=== PATIENT | female | born 1965 | race Caucasian/White ===

== ENCOUNTER 2023-12-23 21:53 | Inpatient (IN) ==
[2023-12-23 23:50] LABS: Hematocrit 28.9 % (35-45); Hemoglobin 10.1 g/dL (11.5-14.3); Mean Corpuscular Hemoglobin 30.5 pg (27-33); Mean Corpuscular Hgb Conc 35.1 g/dL (31-36); Mean Corpuscular Volume 87.1 fL (80-97); Mean Platelet Volume 8.4 fL (7.5-11.2); Platelet Count 141 10^3/uL (150-450); Red Blood Count 3.32 10^6/uL (3.63-4.92); Red Cell Distribution Width 16.5 % (12-17); White Blood Count 3.8 10^3/uL (3.8-11.8)
[2023-12-23 23:58] LABS: Urine Appearance Clear; Urine Bilirubin Negative (Negative); Urine Blood Negative (Negative); Urine Color Light-Yellow; Urine Glucose Negative (Negative); Urine Ketones Negative (Negative); Urine Nitrite Negative (Negative); Urine Protein Negative (Negative); Urine Specific Gravity 1.016 (1.002-1.030); Urine Urobilinogen Negative (Negative); Urine pH 5.5 (5.0-8.0)
[2023-12-23 23:59] LABS: Activated Partial Thrombo Time 32.2 seconds (26.0-38.0); INR 1.12 (0.83-1.13)
[2023-12-24] MEDS: Cefepime 2 GM in Dextrose 2 GM/50 ML BAG IV ONE (00:15)
[2023-12-24 00:50] LABS: Albumin 3.8 g/dL (3.2-5.2); Albumin/Globulin Ratio 2.1 (1-3); C Reactive Protein 23.95 mg/L (<8.01); Calcium 8.9 mg/dL (8.6-10.3); Creatinine, Serum 0.67 mg/dL (0.51-0.95); Globulin 1.8 g/dL (2-4); Potassium 3.8 mmol/L (3.5-5.0); Total Bilirubin 0.5 mg/dL (0.2-1.0); Total Protein 5.6 g/dL (6.4-8.9); eGFR CKD-EPI 100.6 (>60)
[2023-12-24 01:11] LABS: ABS Neutrophils 0.7 10^3/uL (1.5-7.6)
[2023-12-24 01:19] LABS: High Sensitivity Troponin 1 Hr 9 pg/mL (<15)
[2023-12-24] MEDS: Lactated Ringers 1000 ml BAG 1,000 ML IV SCH (02:09)
[2023-12-24 03:08] LABS: ABS Eosinophils 0.3 10^3/uL (0.0-0.5); ABS Lymphocytes 0.5 10^3/uL (1.0-4.8); ABS Monocytes 2.3 10^3/uL (0.0-0.9); ABS Nucleated RBC 0.02 10^3/ul; Eosinophil % 8.7 %; Lymphocyte % 12.1 %; Nucleated Red Blood Cells % 0.5 %/100WBC (0.0-0.8)
[2023-12-24 03:20] LABS: RBC Morphology Normal (Normal)
[2023-12-24 05:59] LABS: Hematocrit 29.8 % (35-45); Hemoglobin 10.3 g/dL (11.5-14.3); Mean Corpuscular Hemoglobin 30.4 pg (27-33); Mean Corpuscular Hgb Conc 34.7 g/dL (31-36); Mean Corpuscular Volume 87.7 fL (80-97); Mean Platelet Volume 8.5 fL (7.5-11.2); Platelet Count 123 10^3/uL (150-450); Red Cell Distribution Width 16.4 % (12-17); White Blood Count 4.6 10^3/uL (3.8-11.8)
[2023-12-24 06:35] LABS: Calcium 8.8 mg/dL (8.6-10.3); Creatinine, Serum 0.58 mg/dL (0.51-0.95); Magnesium 1.5 mg/dL (1.9-2.7); Potassium 4.1 mmol/L (3.5-5.0); eGFR CKD-EPI 104.2 (>60)
[2023-12-24] MEDS: Magnesium Sulfate 2 gm BAG 2 GM/50 ML BAG IVPB ONE (07:50)
[2023-12-24] MEDS: Cefepime 2 GM in Dextrose 2 GM/50 ML BAG IV SCH (09:14)
[2023-12-24] MEDS: Enoxaparin 40 MG/0.4 ML SYR SUBCUT SCH (09:14)
[2023-12-24 09:28] LABS: ABS Monocytes 2.6 10^3/ul (0.0-0.9)
[2023-12-24 09:29] LABS: ABS Eosinophils 0.6 10^3/ul (0.0-0.5)
[2023-12-24 09:32] LABS: ABS Neutrophils 0.5 10^3/ul (1.5-7.6); RBC Morphology Normal (Normal)
[2023-12-24] MEDS: Magnesium Sulfate IV 1GM/100ML 1 GM/100 ML BAG IV ONE (11:32)
[2023-12-25] MEDS: SYNTHROID PO SCH (04:58)
[2023-12-25 05:39] LABS: Hematocrit 30.1 % (35-45); Hemoglobin 10.2 g/dL (11.5-14.3); Mean Corpuscular Hemoglobin 29.8 pg (27-33); Mean Corpuscular Hgb Conc 33.9 g/dL (31-36); Mean Corpuscular Volume 87.9 fL (80-97); Mean Platelet Volume 8.5 fL (7.5-11.2); Platelet Count 134 10^3/uL (150-450); Red Blood Count 3.42 10^6/uL (3.63-4.92); Red Cell Distribution Width 16.7 % (12-17); White Blood Count 20.3 10^3/uL (3.8-11.8)
[2023-12-25 05:50] LABS: Calcium 8.6 mg/dL (8.6-10.3); Creatinine, Serum 0.61 mg/dL (0.51-0.95); Magnesium 1.7 mg/dL (1.9-2.7); Potassium 3.9 mmol/L (3.5-5.0); eGFR CKD-EPI 102.9 (>60)
[2023-12-25 09:36] LABS: ABS Basophils 0.1 10^3/uL (0.0-0.1); ABS Eosinophils 0.5 10^3/uL (0.0-0.5); ABS Lymphocytes 1.1 10^3/uL (1.0-4.8); ABS Monocytes 8.1 10^3/uL (0.0-0.9); ABS Neutrophils 10.5 10^3/uL (1.5-7.6); ABS Nucleated RBC 0.04 10^3/ul; Eosinophil % 2.6 %; Lymphocyte % 5.4 %; Nucleated Red Blood Cells % 0.2 %/100WBC (0.0-0.8); RBC Morphology Normal (Normal); Smudge Cells Present
[2023-12-25 10:17] VITALS: BP 107/67
[2023-12-25] MEDS: Sulfamethox/Trimethoprim DS TAB 800/160 mg PO SCH (11:29)
[2023-12-26 14:45] LABS: Anaplasma phagocytophilum Negative (Negative); B. miyamotoi PCR, B Negative (Negative); Babesia divergens/MO-1 Negative (Negative); Babesia ducani Negative (Negative); Ehrlichia chaffeensis Negative (Negative); Ehrlichia ewingii/canis Negative (Negative); Ehrlichia muris eauclairensis Negative (Negative)
== END 2023-12-25 14:20 | disposition home or self-care (01) | DRG 660 ==
LOC: ED 21:53 → EDHOLD 21:53 → SUATTDRO 12-24 01:58 → OBSVTOIN 12-24 01:58 → MEDTELE 12-24 15:21
PROVIDERS: ADMIT Student in an Organized Health Care Education/Training Program; ATTEND Hospitalist